=== PATIENT | female | born 1985 | race Caucasian/White ===

== ENCOUNTER → 2017-08-09 | Outpatient (CLI) | payer BC ==
[~2017-08-09] MED LIST: CEPH500C PO; OXYC-57 PO
== END | disposition home or self-care (01) ==
LOC: C.LAB 07:26
PROVIDERS: ATTEND Nutritionist
DX: R53.83 Other fatigue (principal)

== ENCOUNTER 2017-11-11 11:33 | Emergency (ER) | payer OTHER, BC ==
[~2017-11-11] VITALS: Ht 160 cm; Wt 75.0 kg
[2017-11-11 11:40] VITALS: Ht 160 cm; Wt 75.0 kg
[2017-11-11] MEDS ORDERED: XYLOCAINE 1%/SOD BICARB 20 ML VIAL INFIL STA (11:57)
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
--- NOTE | 2017-11-11 12:31 | DIAGNOSTIC IMAGING REPORT ---
MAXILLOFACIAL CT CT DOSE: 573.00 mGy.cm HISTORY: Pt dental trauma TECHNIQUE: Multiaxial CT images of the maxillofacial region were performed and reformatted in the coronal plane without the use of contrast. A dose lowering technique was utilized adhering to the principles of ALARA. COMPARISON: None. FINDINGS: There is a fracture within the inferior left maxilla at the alveolar plate of ADA 12 which extends into the floor of the left maxillary sinus and left hard palate. This is not significantly displaced. Small amount of hemorrhage and a tiny bony fragment within the left maxillary sinus. The orbital floors and pterygoid plates are intact. There is also a fracture through the left anterior alveolar plate of the maxilla from the ADA 9 through 11. This results in mild anterior displacement of ADA 10 and 11. There a few fractures involving the apex of the mandible which demonstrates up to 2 mm of posterior displacement. The fractures involve ADA 22 through 26 and demonstrate superior displacement of these teeth measuring up to 6 mm. There is also a nondisplaced hairline fracture within the body of the right hemimandible best in image 51 of 449. Soft tissue swelling within the lips with multiple small bony fragments within the lower lip with an associated laceration. The skull base and visualized cervical spine are intact. No fractures within the nasal bones. IMPRESSION: Mandibular and maxillary fractures as described above. Electronically signed by: Thaddeus Witt M.D. 11/11/2017 12:30 PM Dictated Date/Time: 11/11/2017 12:19 PM
[2017-11-11] MEDS ORDERED: OREGCAP PO (12:42)
[2017-11-11] MEDS ORDERED: AMINTAB13 PO (12:42)
[2017-11-11] MEDS ORDERED: MISCCAP80 PO (12:42)
[2017-11-11] MEDS ORDERED: MULT-506 PO (12:42)
[2017-11-11] MEDS ORDERED: BUPIVACAINE/EPINEPHRINE 0.5% 1:200,000 1.8 ML CARP ONE ×2 (13:26→13:30)
[2017-11-11] MEDS ORDERED: HEPARIN SOD (PORCINE) 5000 UNIT/ML 1 ML VIAL ONE (13:29)
[2017-11-11] MEDS ORDERED: HEPARIN SOD (PORCINE) 1000 UNIT/ML 10 ML VIAL ONE (13:30)
[2017-11-11] MEDS ORDERED: SUCCINYLCHOLINE CHLORIDE 20 MG/ML 10 ML VIAL IV ONE (13:35)
[2017-11-11] MEDS ORDERED: LIDOCAINE HCL 2% 2 ML VIAL (20MG/ML) ONE (13:35)
[2017-11-11] MEDS ORDERED: ROCURONIUM BROMIDE 10 MG/ML 5 ML VIAL IV ONE (13:35)
[2017-11-11] MEDS ORDERED: ONDANSETRON INJ 2 MG/ML 2 ML VIAL ONE (13:35)
[2017-11-11] MEDS ORDERED: PROPOFOL IV EMULSION 10 MG/ML 20 ML VIAL IV ONE (13:35)
[2017-11-11] MEDS ORDERED: DEXAMETHASONE SOD INJ 4 MG/ML VIAL ONE (13:35)
[2017-11-11] MEDS ORDERED: MIDAZOLAM HCL 1 MG/ML 2ML VIAL ONE (13:36)
[2017-11-11] MEDS ORDERED: FENTANYL CITRATE INJ 50 MCG/1 ML 2 ML VIAL ONE ×2 (13:36→13:41)
[2017-11-11 13:54] VITALS: O2SAT 100
[2017-11-11] MEDS ORDERED: ONDANSETRON INJ 2 MG/ML 2 ML VIAL IV PRN (14:00)
[2017-11-11] MEDS ORDERED: PHENYLEPHRINE 100MCG/ML 5ML SYR IV PRN (14:00)
[2017-11-11] MEDS ORDERED: EpHEDrine SULFATE INJ 50 MG/ML AMP IV PRN (14:00)
[2017-11-11] MEDS ORDERED: ATROPINE SULFATE 0.1 MG/ML 5ML SYR IV PRN (14:00)
[2017-11-11] MEDS ORDERED: HYDROmorphone INJ 2 MG/ML SYR/VIAL IV PRN (14:00)
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
[2017-11-11] MEDS ORDERED: BACITRACIN OINT 15 GM TUBE ONE (15:28)
--- NOTE | 2017-11-11 15:44 | [facility] Post Operative Brief Note ---
Immediate Operative Summary Operative Date Nov 11, 2017. Pre-Operative Diagnosis Mandibular and Maxillary fracture and Avulsion of Teeth Soft tissue laceration - 5cm lower lip, complex Post-Operative Diagnosis Mandibular and Maxillary fracture and Avulsion of Teeth Soft tissue laceration - 5cm lower lip, complex Procedure(s) Performed Open Debredement and Reduction of Mandible; Removal of Hopeless Teeth; Laceration Repair Surgeon Dr. Grove [employer] Consultant Surgeon(s) None Estimated Blood Loss 20cc Findings Multiple hopeless teeth needed to be removed, bone debrided and soft tissue repaired. Fluids (cc crystalloids) 1000cc Specimens Teeth and bone for gross examination Drains None Anesthesia GETA Complication(s) None Disposition Surgical ICU
[2017-11-11] MEDS ORDERED: AMOX500C3 PO (15:59)
[2017-11-11] MEDS ORDERED: HYDR-5688 PO (15:59)
--- NOTE | 2017-11-11 16:04 | Discharge Instructions ---
Discharge Instructions Date of Service Nov 11, 2017. Admission Reason for Admission: Facial Trauma Discharge Discharge Diagnosis / Problem: Maxillary and Mandibular fracture, avulsion of teeth, soft tissue lacs. Discharge Goals Goal(s): Decrease discomfort, Improve function Activity Recommendations Activity Limitations: per Instructions/Follow-up section Lifting Limitations: no more than 25 pounds Exercise/Sports Limitations: until after follow-up appointment Shower/Bathe: no limitations . Instructions / Follow-Up Instructions / Follow-Up See Dr. Grove for Follow up this coming week - [phone] Amoxicillin and Hydrocodone - see Rx's Liquid Diet Salt water rinses (1/2 tsp salt in a tall glass of warm water is about the right concentration) Neosporin to the suture line on her lip twice daily for 3 days. Current Hospital Diet Patient's current hospital diet: Discharge Diet Recommended Diet: Full Liquid Diet Procedures Procedures Performed: Open Debredement and Reduction of Mandible; Removal of Hopeless Teeth; Laceration Repair Pending Studies Studies pending at discharge: no Medical Emergencies . Who to Call and When: Medical Emergencies: If at any time you feel your situation is an emergency, please call 911 immediately. . Non-Emergent Contact Non-Emergency issues call your: Surgeon Contact Number: [phone] Call Non-Emergent contact if: temperature is above [phone] . "Provider Documentation" section prepared by Ronald Grove. . VTE Core Measure Inpt VTE Proph given/why not?: SCD's
--- NOTE | 2017-11-11 16:21 | Anesthesiology Progress Note ---
Anesthesia Post Op Note Date & Time Nov 11, 2017 at 16:21 Vital Signs Pain Intensity: 0 Vital Signs Past 12 Hours Date Time Temp Pulse Resp B/P (MAP) Pulse Ox O2 Delivery O2 Flow Rate FiO2 11/11/17 16:15 103 16 133/95 94 Room Air 11/11/17 16:05 100 18 129/91 95 Oxymask 2 11/11/17 15:55 82 20 139/83 97 Oxymask 5 11/11/17 15:47 36.6 98 20 138/85 97 Oxymask 5 11/11/17 13:54 100 18 165/108 100 11/11/17 12:22 94 14 175/100 97 11/11/17 11:40 37.1 96 14 154/104 99 Room Air Notes Mental Status: alert / awake / arousable, participated in evaluation Pt Amnestic to Procedure: Yes Nausea / Vomiting: adequately controlled Pain: adequately controlled Airway Patency, RR, SpO2: stable & adequate BP & HR: stable & adequate Hydration State: stable & adequate Anesthetic Complications: no major complications apparent
[2017-11-11 16:25] VITALS: BP 133/91; PULSE 101; TEMP 36.8; O2SAT 94
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
[2017-11-11 16:40] VITALS: BP 137/89; PULSE 96; O2SAT 95
--- NOTE | 2017-11-11 16:40 | DIAGNOSTIC IMAGING REPORT ---
CHEST ONE VIEW PORTABLE HISTORY: Facial trauma. MISSING TOOTH COMPARISON: None. FINDINGS: The endotracheal tube is within the right mainstem bronchus and should be pulled back by approximately 4 cm. Left basilar linear densities consistent with subsegmental atelectasis. There are no teeth-like radiopaque foreign bodies. Right lung is clear. The heart is normal in size. No pleural effusions. No pneumothorax. IMPRESSION: The endotracheal tube is within the right mainstem bronchus and should be pulled back by approximately 4 cm. These findings were called to Dr. Heller at 4:35 PM on 11/11/2017. Electronically signed by: Thaddeus Witt M.D. 11/11/2017 4:39 PM Dictated Date/Time: 11/11/2017 4:31 PM
== END 2017-11-11 16:21 | disposition home or self-care (01) ==
LOC: MERGE 11:37 → C.EDC 11:37
DX: S02.672A Fracture of alveolus of left mandible, initial encounter for closed fracture (principal); S02.40DA Maxillary fracture, left side, initial encounter for closed fracture; S02.5XXA Fracture of tooth (traumatic), initial encounter for closed fracture; S01.511A Laceration without foreign body of lip, initial encounter; W20.8XXA Other cause of strike by thrown, projected or falling object, initial encounter; Y93.23 Activity, snow (alpine) (downhill) skiing, snowboarding, sledding, tobogganing and snow tubing; F17.200 Nicotine dependence, unspecified, uncomplicated; Z87.442 Personal history of urinary calculi
CPT/HCPCS: 13152; D7140; D7290